=== PATIENT | male | born 1965 | race Caucasian/White ===

== ENCOUNTER → 2022-02-17 | Outpatient (CLI) | payer BC ==
[~2022-02-17] MED LIST: CLIN-94 PO; DEXA4TAB PO; IOHEXOL 240 MG/ML 50ML VIAL. PO ONE; IOHEXOL 300 MG/ML 100ML VIAL. IV ONE; MONT10TA49 PO
--- NOTE | 2022-02-17 16:04 | KCIC ---
CT scan of the abdomen with contrast 02/17/2022 CLINICAL HISTORY: Epigastric pain. Elevated lipase. TECHNIQUE: After the oral and intravenous administration of contrast, contiguous, 0.6 mm axial sectio ns were obtained through the abdomen and pelvis. 5 mm reconstructed axial, sagittal and coronal image s were obtained. 100 cc of Omnipaque 300 were administered intravenously during this examination. One or more of the following individualized dose reduction techniques were utilized for this study: 1. Automated exposure control. 2. Adjustment of the mA and/or kV according to patient size. 3. Use of iterative reconstruction technique. FINDINGS: Images through the lung bases demonstrate minimal dependent subsegmental atelectasis. The liver has a decreased attenuation consistent with fatty infiltration. The spleen, pancreas, adren al glands and kidneys are within normal limits. The abdominal aorta tapers normally. Atherosclerotic calcification abdominal aorta is seen. The gallb ladder is slightly contracted. No free fluid or free air is seen within the abdomen. There is no evid ence of bowel obstruction. Air and stool seen throughout the colon. Minimal S-shaped curvature of the thoracolumbar spine is seen. Degenerative changes are seen involvin g the lower thoracic and throughout the lumbar spine. IMPRESSION: No acute abnormality is seen. Electronically signed by: Neeraj Stuart MD (02/17/2022 4:02 PM) [id number]
== END ==
LOC: KCIC CT 12:23
PROVIDERS: ATTEND Family Medicine
DX: J98.11 Atelectasis (principal); I70.0 Atherosclerosis of aorta; K82.0 Obstruction of gallbladder; R74.8 Abnormal levels of other serum enzymes; M41.85 Other forms of scoliosis, thoracolumbar region; M47.815 Spondylosis without myelopathy or radiculopathy, thoracolumbar region
CPT/HCPCS: 74160; Q9966; Q9967